=== PATIENT | female | born 1990 | race Caucasian/White ===

== ENCOUNTER 2023-09-26 14:30 | Inpatient (IN) | payer BC, SELFPAY ==
[2023-09-26 14:53] VITALS: BP 135/89; PULSE 100; RESP 14; TEMP 36.9; O2SAT 98; BMI 29.4
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
[2023-09-26 15:14] LABS: MANUAL DIFF FLAG NO
[2023-09-26 15:16] LABS: Basophils Absolute Auto 0.1 X10*3/uL (0.0-0.2); Basophils Percent Auto 0.7 % (0-2); Eosinophils Absolute Auto 0.2 X10*3/uL (0.0-0.4); Eosinophils Percent Auto 1.8 % (0-4); Hematocrit 40.2 % (37.0-47.0); Hemoglobin 13.5 g/dl (12.0-16.0); Imm Gran Abs Auto 0.02 X10*3/uL (0.00-0.03); Imm Gran Pct Auto 0.2 % (0.0-0.4); Lymphocytes Absolute Auto 2.3 X10*3/uL (1.2-4.9); Lymphocytes Percent Auto 27.4 % (20-40); Mean Corpuscular HGB Conc 33.6 g/dl (31.0-35.0); Mean Corpuscular Hemoglobin 29.4 pg (27.0-33.0); Mean Corpuscular Volume 87.6 fL (80.0-98.0); Mean Platelet Volume 11.4 fL (9.4-12.3); Monocytes Absolute Auto 0.4 X10*3/uL (0.1-1.2); Monocytes Percent Auto 5.3 % (2-11); Neutrophils Absolute Auto 5.3 x10*3/uL (2.0-8.3); Neutrophils Percent Auto 64.6 % (45-73); Platelet Count 272 X10*3/uL (160-400); Red Blood Count 4.59 X10*6/uL (4.20-5.50); Red Cell Distribution Width 12.7 % (11.0-16.0); White Blood Count 8.3 X10*3/uL (4.8-10.8)
[2023-09-26 15:23] LABS: Appearance Urine Clear; Color Urine Yellow; Glucose Urine UA Negative (Negative); Leukocyte Esterase Urine Trace (Negative); Nitrite Urine Negative (Negative); Specific Gravity - Urine 1.015 (1.005-1.025); UMIC TRIGGER UACC YES; Urine Blood Negative (Negative); Urine Ketones Negative (Negative); Urine Protein Negative (Neg-Trace)
[2023-09-26 15:26] LABS: Bacteria Urine 1+ (None Seen); Hyaline Casts Urine 0-2 /LPF (0-2); RBC Urine 0-2 /HPF (0-2); WBC Urine 0-5 /HPF (0-5)
[2023-09-26 15:33] LABS: COVID-19 Test Negative (Negative); IDNOW Serial# 08D9AD1C
[2023-09-26 15:39] LABS: Acetaminophen LAB < 3 mcg/mL (<30); Alanine Aminotransferase 18 U/L (0-31); Albumin Level 4.5 g/dL (3.5-5.0); Alkaline Phosphatase 92 U/L (39-117); Anion Gap 10 (12-20); Aspartate Amino Transferase 14 U/L (5-31); Bilirubin Total 1.5 mg/dL (0.0-1.0); Blood Urea Nitrogen 8 mg/dL (9-16); Calcium 9.5 mg/dL (8.4-10.2); Carbon Dioxide 27 mmol/L (22-29); Chloride 106 mmol/L (96-108); Creatinine Clr Calc Pharmacy 118.6; Estimated Glomerular Filt Rate > 60; Ethanol < 10 mg/dL; Glucose Random 99 mg/dL (60-115); Potassium 4.3 mmol/L (3.3-5.1); Salicylate < 5.0 mg/dL (15-30); Sodium 139 mmol/L (135-145); Total Protein 7.5 g/dL (6.5-8.0)
[2023-09-26 16:12] LABS: Amphetamine Screen Urine Not Detected (Not Detect); Barbiturates, Urine Not Detected (Not Detect); Benzodiazepines Screen Urine Not Detected (Not Detect); Cannabinoid Screen Urine Not Detected (Not Detect); Cocaine Screen Urine Not Detected (Not Detect); Fentanyl, urine Not Detected (Not Detect); Opiate Screen Urine Not Detected (Not Detect); Phencyclidine Screen Urine Not Detected (Not Detect)
[2023-09-26] MEDS: LORazepam 1 MG TABLET PO (19:51)
--- NOTE | 2023-09-26 20:26 | PC.NURSE ---
patient appears to remain at rest respirations are even and unlabored patient appears in no distress, patient had requested medication for anxiety and t/w pursued ativan, patient received, awaiting response.
[2023-09-26] MEDS: diphenhydrAMINE HCL 25 MG CAPSULE 50 MG PO (22:17)
[2023-09-27] MEDS: Zolpidem Tartrate 5 MG TABLET PO (00:38)
[2023-09-27 01:15] VITALS: BP 132/89; PULSE 87; RESP 16; TEMP 37; O2SAT 99
--- NOTE | 2023-09-27 08:23 | PC.NURSE ---
Assumed care of patient at 0700, patient appears to be sleeping, respirations even and unlabored, no apparent distress noted. Continue plan of care for inpatient bedsearch, sec 12
[2023-09-27 09:20] VITALS: RESP 14
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
[2023-09-27 10:00] VITALS: RESP 18
[2023-09-27 10:14] VITALS: BP 133/84; PULSE 105; RESP 14; TEMP 36.4; O2SAT 99
[2023-09-27 13:03] VITALS: BP 132/84; PULSE 86; RESP 18; TEMP 36.3; O2SAT 99
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
[2023-09-27 19:43] VITALS: BP 127/97; TEMP 36.7; O2SAT 99
[2023-09-27] MEDS: QUEtiapine Fumarate 25 MG TABLET PO (21:15)
--- NOTE | 2023-09-27 23:29 | PC.NURSE ---
Serenity presented to this RN very upset following a phone call. she repeatedly stated I don't belong here, I don't need this level of care. I want to go home, why can't I go home. this is all just a big mistake . Patient allowed to vent, 4 square breathing and other relaxation/distraction techniques reviewed. Serenity was encouraged to speak with the covering provider in the morning and to be honest and tell the provider all of her symptoms. Patient given HS Seroquel but remained upset for another hour. patient had several more heated telephone conversations however she was eventually able to retire to her bed.
[2023-09-28 06:00] VITALS: BP 110/62; PULSE 75; RESP 14; TEMP 36.3; O2SAT 97
[2023-09-28 09:00] LABS: Alanine Aminotransferase 14 U/L (0-31); Albumin Level 4.1 g/dL (3.5-5.0); Alkaline Phosphatase 73 U/L (39-117); Anion Gap 14 (12-20); Aspartate Amino Transferase 12 U/L (5-31); Bilirubin Total 2.2 mg/dL (0.0-1.0); Blood Urea Nitrogen 11 mg/dL (9-16); Calcium 9.1 mg/dL (8.4-10.2); Carbon Dioxide 26 mmol/L (22-29); Chloride 107 mmol/L (96-108); Cholesterol 173 mg/dL (<200); Creatinine Clr Calc Pharmacy 123.2; Estimated Glomerular Filt Rate > 60; Glucose Fasting 83 mg/dL (60-99); HDL Cholesterol 44 mg/dL (>40); LDL Cholesterol Calculated 111 mg/dL (<100); Potassium 3.8 mmol/L (3.3-5.1); Sodium 143 mmol/L (135-145); Total Protein 6.8 g/dL (6.5-8.0); Triglycerides 92 mg/dL (<150)
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
[2023-09-28 19:43] VITALS: BP 125/78; PULSE 90; RESP 16; TEMP 36.3; O2SAT 98
[2023-09-28] MEDS: QUEtiapine Fumarate 25 MG TABLET PO (21:54)
[2023-09-29 13:15] VITALS: BP 129/90; PULSE 112; RESP 15; TEMP 36.8; O2SAT 97
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
[2023-09-29 20:15] VITALS: BP 130/84; PULSE 99; RESP 18; TEMP 36.8; O2SAT 100
[2023-09-29] MEDS: QUEtiapine Fumarate 25 MG TABLET PO (21:16)
[2023-09-30 08:05] VITALS: BP 118/73; PULSE 72; RESP 14; TEMP 36.3; O2SAT 99
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
== END 2023-09-30 12:25 | disposition home or self-care (01) | DRG 754 ==
LOC: HO.ED 09-27 08:10 → HO.PADLT16 09-27 09:02
PROVIDERS: Admitting Provider Registered Nurse; Emergency Provider Emergency Medicine Emergency Medical Services; Responsible Provider Registered Nurse; Visit Provider Psychiatry & Neurology Psychiatry
DX: F32.A Depression, unspecified (principal); R45.851 Suicidal ideations; F43.10 Post-traumatic stress disorder, unspecified; Z20.822 Contact with and (suspected) exposure to COVID-19
CPT/HCPCS: 36415; 80053; 80061; 80143; 80179; 80307; 81001; 85025; 87635; 99285; S9485

== ENCOUNTER → 2023-09-27 08:58 | Outpatient (BNV) | payer BC, SELFPAY | PROVIDERS: Admitting Provider Registered Nurse; Emergency Provider Emergency Medicine Emergency Medical Services; Responsible Provider Registered Nurse; Visit Provider Registered Nurse | DX: F33.2 Major depressive disorder, recurrent severe without psychotic features (principal); F43.11 Post-traumatic stress disorder, acute | CPT/HCPCS: 90792; 99231; 99232; 99238 ==